=== PATIENT | female | born 1975 | race Caucasian/White ===

== ENCOUNTER 2016-11-27 09:57 | Day surgery (SDC) | payer BC, MEDICAID ==
[~2016-11-27 09:57] MED LIST: Lactated Ringers 1,000 ML IV SCH
[2016-11-27] MEDS ORDERED: Propofol 200 MG/20 ML SDV ONE ×2 (11:01→12:04)
[2016-11-27] MEDS ORDERED: fentaNYL 100 MCG/2 ML SDV ONE (11:01)
[2016-11-27 13:10] VITALS: BP 122/79
--- NOTE | 2016-11-27 17:59 | OR ---
REFERRING PROVIDER: Lauryn Mark PA-C PREOPERATIVE DIAGNOSES: 1. Positive family history of colon cancer in mother who from this at age 44. This is the patient's second colonoscopy with the first one being normal in 2004. 2. Chronic diarrhea, possibly stress induced. Also been having some recent left-sided abdominal pain. POSTOPERATIVE DIAGNOSES: 1. Tiny 2 mm polyp at 15 cm from the anal verge, removed with cold forceps. 2. Random colon biopsies taken given the history of chronic diarrhea. Colonic mucosa normal in appearance. 3. Tortuous colon, especially in the sigmoid area. PROCEDURE: Colonoscopy with polypectomy x1 using cold forceps as well as random biopsies taken using cold forceps. ANESTHESIA: Monitored anesthesia care. BOWEL PREP: Good. DESCRIPTION OF PROCEDURE: Abisai is a 41-year-old female who was brought to the endoscopy suite after discussing risks and benefits of the procedure. Informed consent was obtained for conscious sedation and colonoscopy with or without biopsy and/or polypectomy. We also discussed possibility of missed lesions. Pre-procedure exam was unremarkable. IV, oxygen, and monitors were placed. The patient was placed in the left lateral decubitus position. Sedation was administered, and a digital rectal exam was performed which was remarkable for some external hemorrhoids, not acutely inflamed. Colonoscope was passed into the rectum and slowly advanced all the way to the cecum. The patient did have quite tortuous colon which required some scope maneuvering as well as abdominal pressure. Cecum was viewed and photographed. The colonoscope was slowly withdrawn and the mucosa was closed observed in a direct circumferential manner. The ascending colon was unremarkable. The transverse colon was unremarkable. The descending colon was unremarkable. The sigmoid colon was remarkable for a tiny 2 mm polyp at 15 cm from the anal verge, removed with cold forceps. During removal of the scope, random biopsies were obtained from right, transverse, and left colon areas as well as rectal area. Retroflexion was performed, and rectal mucosa was unremarkable. Scope was removed. The patient tolerated the procedure well. The patient was monitored until that baseline status. Discharge instructions were reviewed and the patient was discharged in good condition. COMPLICATIONS: None. TOTAL TIME: 23 minutes. ESTIMATED BLOOD LOSS: About 1 mL. RECOMMENDATIONS/FOLLOWUP: We will await results of path report to determine ideal followup interval. I would like to kindly thank Lauryn Mark for this referral. DMB: 11/27/2016 12:32:43 MODL: 11/27/2016 17:38:44 /[id number]
== END 2016-11-27 13:40 | disposition home or self-care (01) ==
LOC: VM.SDS 09:57
PROVIDERS: ATTEND Family Medicine
DX: Z12.11 Encounter for screening for malignant neoplasm of colon (principal); D12.6 Benign neoplasm of colon, unspecified; F41.9 Anxiety disorder, unspecified; Z80.0 Family history of malignant neoplasm of digestive organs; Z79.1 Long term (current) use of non-steroidal anti-inflammatories (NSAID); Z79.899 Other long term (current) drug therapy; Z79.891 Long term (current) use of opiate analgesic; Z98.890 Other specified postprocedural states; Z90.710 Acquired absence of both cervix and uterus
CPT/HCPCS: 45380; J2704; J3010; J7120